=== PATIENT | male | born 1965 | race Caucasian/White ===

== ENCOUNTER 2019-12-08 20:59 | Emergency (ER) | payer OTHER ==
[~2019-12-08] VITALS: Ht 185.4 cm; Wt 83.9 kg
[2019-12-08] MEDS ORDERED: NORCO 5-325 TA1 EACH PO (22:51)
== END 2019-12-08 23:09 | disposition home or self-care (01) ==
LOC: ED 20:59
DX: S42.022A Displaced fracture of shaft of left clavicle, initial encounter for closed fracture (principal); V19.9XXA Pedal cyclist (driver) (passenger) injured in unspecified traffic accident, initial encounter; F17.200 Nicotine dependence, unspecified, uncomplicated; Z88.2 Allergy status to sulfonamides
CPT/HCPCS: 73000; 99283-25

== ENCOUNTER 2020-03-27 15:40 | Emergency (ER) | payer OTHER ==
[~2020-03-27] VITALS: Ht 185.4 cm; Wt 83.9 kg
[~2020-03-27 15:40] MED LIST: NORCO 5-325 TA1 EACH PO
[2020-03-27] MEDS ORDERED: AUGMENTIN 875-1 EACH PO (16:26)
[2020-03-27] MEDS ORDERED: LISINOPRIL20 MG PO (16:26)
== END 2020-03-27 17:13 | disposition home or self-care (01) ==
LOC: ED 15:40
DX: S06.9X9A Unspecified intracranial injury with loss of consciousness of unspecified duration, initial encounter (principal); S01.81XA Laceration without foreign body of other part of head, initial encounter; S93.401A Sprain of unspecified ligament of right ankle, initial encounter; S50.811A Abrasion of right forearm, initial encounter; S70.312A Abrasion, left thigh, initial encounter; F17.200 Nicotine dependence, unspecified, uncomplicated; Z88.2 Allergy status to sulfonamides; Z79.899 Other long term (current) drug therapy; X58.XXXA Exposure to other specified factors, initial encounter
CPT/HCPCS: 12011; 99284-25